=== PATIENT | male | born 1985 | race Caucasian/White ===

== ENCOUNTER 2018-08-27 01:50 | Observation (INO) ==
[2018-08-27 03:32] LABS: Bilirubin,Urine Moderate (Negative); Blood,Urine Negative (Negative); Clarity,Urine Clear (Clear); Color,Urine Orange (Yellow); Glucose,Urine (UA) Normal (Normal); Ketones,Urine Trace mg/dL (Negative); Leukocyte Esterase,Urine Trace (Negative); Nitrite,Urine Negative (Negative); Protein,Urine 30 mg/dL (Neg-Trace); Specific Gravity,Urine > 1.030 (1.010-1.025)
[2018-08-27 03:35] LABS: Bacteria,Urine None Seen per hpf (None-Few); Hyaline Casts,Urine Few per lpf (None-Few); RBC,Urine 0-3 per hpf (0-3); Squamous Epithelial Cell,Urine Moderate per lpf (None-Few); WBC,Urine 0-3 per hpf (0-3)
[2018-08-27 03:43] LABS: Amphetamine Screen,Urine Positive ng/mL (Cutoff=1000); Barbiturate Screen,Urine Positive ng/mL (Cutoff=200); Benzodiazepines Screen,Urine Positive ng/mL (Cutoff=200); Cannabinoid Screen,Urine Negative ng/mL (Cutoff = 50); Cocaine Screen,Urine Negative ng/mL (Cutoff= 300); Opiate Screen,Urine Negative ng/mL (Cutoff=300); Phencyclidine Screen,Urine Negative ng/mL (Cutoff=25)
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
[2018-08-27] MEDS ORDERED: 0.9 % Sodium Chloride 1,000 ML IVC ONE (07:45)
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
[2018-08-27] MEDS ORDERED: MOM Conc 10 ML UD.LIQ PO PRN (12:30)
[2018-08-27] MEDS ORDERED: Haloperidol Lactate 5 MG/ML VIAL IM PRN (12:30)
[2018-08-27] MEDS ORDERED: traZODone 50 MG TABLET PO PRN (12:30)
[2018-08-27] MEDS ORDERED: hydrOXYzine pamoate 25 MG CAPSULE PO PRN (12:30)
[2018-08-27] MEDS ORDERED: Mag Hydrox/Al Hydrox/Simeth 30 ML UDC PO PRN (12:30)
[2018-08-27] MEDS ORDERED: *HR* LORazepam 1 MG TABLET PO PRN (12:30)
[2018-08-27] MEDS ORDERED: *HR* LORazepam 2 MG/ML VIAL IM PRN (12:30)
[2018-08-27] MEDS: Ibuprofen 400 MG TABLET PO PRN (17:19)
[2018-08-28] MEDS ORDERED: Ondansetron ODT 4 MG TAB.RAPDIS SL PRN (10:19)
[2018-08-28] MEDS ORDERED: cloNIDine HCl 0.1 MG TABLET PO PRN (10:20)
[2018-08-28] MEDS ORDERED: Nicotine 21 MG PATCH.TD24 TD SCH (11:21)
[2018-08-28 12:51] VITALS: BP 95/58
[2018-08-28] MEDS: Ibuprofen 400 MG TABLET PO PRN (14:25)
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
== END 2018-08-28 17:45 | disposition home or self-care (01) ==
LOC: EMEROOARM 01:50 → 1ANU 12:05 → INTOOBSV 12:05 → 1ANU 12:17
PROVIDERS: ADMIT Psychiatry & Neurology Psychiatry; ATTEND Psychiatry & Neurology Psychiatry